=== PATIENT | male | born 1990 | race Caucasian/White ===

== ENCOUNTER 2017-09-16 13:33 | Emergency (ER) | payer SELFPAY ==
[~2017-09-16] VITALS: Ht 172.7 cm; Wt 62.1 kg
[2017-09-16 14:18] VITALS: Ht 172.7 cm; Wt 62.1 kg
[2017-09-16 15:31] LABS: BASOPHIL % 1.4 % (0-2); PLATELET COUNT 188 x10^3mcL (130-400)
[2017-09-16 15:41] LABS: RED CELL DISTRIBUTION WIDTH 15.8 % (11.5-14.5)
[2017-09-16 15:43] LABS: ALBUMIN 4.2 g/dL (3.4-5.0); ALKALINE PHOSPHATASE 117 U/L (46-116); ALT/SGPT 142 U/L (16-63); AMYLASE 135 U/L (25-115); AST/SGOT 255 U/L (15-37); BILIRUBIN TOTAL 1.2 mg/dL (0.20-1.00); CALCIUM 8.2 mg/dL (8.5-10.1); CARBON DIOXIDE 24.5 mmol/L (21-32); CHLORIDE SERUM 95 mmol/L (98-107); CREATININE SERUM 1.1 mg/dL (0.7-1.3); GFR1 > 60 mL/min; GLUCOSE SERUM 133 mg/dL (74-106); LIPASE 245 IU/L (73-393); POTASSIUM SERUM 3.7 mmol/L (3.5-5.1); SODIUM SERUM 136 mmol/L (136-145)
[2017-09-16 18:24] VITALS: BP 109/69
== END 2017-09-16 18:24 | disposition home or self-care (01) ==
LOC: ED 13:33
PROVIDERS: Emergency Medicine
DX: K29.70 Gastritis, unspecified, without bleeding (principal); F10.10 Alcohol abuse, uncomplicated
CPT/HCPCS: J2550; J7030; Q9967